=== PATIENT | male | born 1980 | race Caucasian/White ===

== ENCOUNTER 2022-07-04 12:11 | Emergency (ER) | payer SELFPAY ==
[~2022-07-04] VITALS: Ht 167.6 cm; Wt 116.1 kg
[2022-07-04 12:30] VITALS: BP 154/89
--- NOTE | 2022-07-04 12:36 | NUR ---
PT AMBULATED TO ER BED 6
--- NOTE | 2022-07-04 12:45 | NUR ---
41YO MALE PT C/O L 3RD DIGIT LAC XTODAY. REPORTS CUTTING FINGER WHILE USING COMPUTER SYSTEMS ARCHITECT. PRESENTS WITH LAC ACROSS TIP OF FINGER, NO ACTIVE BLEEDING. +NUMBING -LOSS OF SENSATION. CAP REFILL <3 THROUGHOUT. PT AAOX4, HOB POSITONED PER COMFORT HX:DENIES NKA
--- NOTE | 2022-07-04 12:50 | NUR ---
PA CHAPIN AT BEDSIDE FOR EVALUATION
[2022-07-04] MEDS ORDERED: LIDOCAINE MPF 1% 10 MG/ML VIAL INJ ONE (12:55)
[2022-07-04] MEDS ORDERED: ACET-10509 PO (13:23)
[2022-07-04] MEDS ORDERED: IBUP-2213 PO (13:23)
[2022-07-04] MEDS ORDERED: LIDOCAINE MPF 1% 5 ML ONE (14:14)
[2022-07-04] MEDS ORDERED: BACITRACIN OINT 500 UNITS/GM PKT TP ONE ×2 (14:43→14:55)
--- NOTE | 2022-07-04 14:54 | NUR ---
1450 PT'S LEFT HAND 3RD DIGIT CLEANED W/ NORMAL SALINE AND 4X4 GAUZE. WOUND WAS THEN DRESSED W/ NONADHERENT GAUZE PAD AND WRAPPED W/ GAUZE ROLL. FINGER SPLINT WAS THEN PLACED ON PT AND WRAPPED W/ COBAND. +CMS.
[2022-07-04 15:01] VITALS: BP 140/82
[2022-07-04] MEDS ORDERED: HYDROcodone/APAP 5/325 MG 1 TAB TAB PO ONE (15:05)
--- NOTE | 2022-07-04 15:30 | NUR ---
Patient discharged with v/s stable. Written and verbal after care instructions FOR LAC CARE AND NAIL AVULSION given and explained. Patient alert, oriented and verbalized understanding of instructions. Ambulatory with steady gait. All questions addressed prior to discharge. ID band removed. Patient advised to follow up with PMD. Rx of IBUPROFEN AND TYLENOL given. Opportunity to ask questions provided and answered.
== END 2022-07-04 15:30 | disposition home or self-care (01) ==
LOC: MED 12:11
DX: S62.633A Displaced fracture of distal phalanx of left middle finger, initial encounter for closed fracture (principal); S61.313A Laceration without foreign body of left middle finger with damage to nail, initial encounter; W26.8XXA Contact with other sharp object(s), not elsewhere classified, initial encounter; Y93.89 Activity, other specified; Y92.89 Other specified places as the place of occurrence of the external cause; Y99.8 Other external cause status
CPT/HCPCS: 12001; 73140; 99283; J2001

== ENCOUNTER 2022-07-06 08:42 | Emergency (ER) | payer SELFPAY ==
[~2022-07-06] VITALS: Ht 175.3 cm; Wt 108.9 kg
[~2022-07-06 08:42] MED LIST: ACET-10509 PO; IBUP-2213 PO
[2022-07-06 09:00] VITALS: BP 139/74
--- NOTE | 2022-07-06 10:11 | NUR ---
Patient discharged with v/s stable. Written and verbal after care instructions given and explained. Patient verbalized understanding. Ambulatory with steady gait. All questions addressed prior to discharge. Advised to follow up with PMD.
== END 2022-07-06 10:11 | disposition home or self-care (01) ==
LOC: MED 08:42
DX: S61.213D Laceration without foreign body of left middle finger without damage to nail, subsequent encounter (principal); Z48.00 Encounter for change or removal of nonsurgical wound dressing; X58.XXXD Exposure to other specified factors, subsequent encounter
CPT/HCPCS: 99281